=== PATIENT | male | born 1985 | race Two or more races ===

== ENCOUNTER 2017-09-10 21:13 | Emergency (ER) | payer SELFPAY ==
[~2017-09-10] VITALS: Ht 175.3 cm; Wt 81.6 kg
[2017-09-10 21:25] VITALS: BP 137/73
== END 2017-09-11 01:38 | disposition left against medical advice (07) ==
LOC: EDBD 21:13 → ER 21:19
DX: R07.89 Other chest pain (principal); Z53.21 Procedure and treatment not carried out due to patient leaving prior to being seen by health care provider
CPT/HCPCS: 93005